=== PATIENT | male | born 1950 | race Caucasian/White ===

== ENCOUNTER 2018-02-17 14:27 | Emergency (ER) | payer OTHER ==
[2018-02-17 15:19] LABS: BASO % 0.3 % (0.0-1.0); EOS # 0.4 10^3/uL (0.0-0.50); EOS % 4.5 % (0.0-3.0); HEMATOCRIT 46.5 % (42.0-52.0); HEMOGLOBIN 15.9 g/dl (13.5-17.5); IMMATURE GRANULOCYTE % 0.4 % (0-3.0); LYMPH # 1.8 10^3/uL (1.5-4.5); LYMPH % 18.9 % (24.0-44.0); MEAN CORPUSCULAR HEMOGLOBIN 32.3 pg (27.0-33.0); MEAN CORPUSCULAR HGB CONC 34.2 g/dl (32.0-36.5); MEAN CORPUSCULAR VOLUME 94.5 fl (80.0-96.0); MONO # 0.9 10^3/uL (0.0-0.8); MONO % 8.9 % (0.0-5.0); NEUTROPHILS # 6.4 10^3/uL (1.8-7.7); PLATELET COUNT, AUTOMATED 243 10^3/uL (150-450); RED BLOOD COUNT 4.92 10^6/uL (4.30-6.10); RED CELL DISTRIBUTION WIDTH 16.7 % (11.5-14.5); WHITE BLOOD COUNT 9.6 10^3/uL (4.0-10.0)
[2018-02-17] MEDS: ONDANSETRON 4MG/2ML VIAL (J2405) IV (16:01)
[2018-02-17] MEDS: NS 1,000 ML IV (16:02)
[2018-02-17] MEDS: MORPHINE 4 MG/ML 1ML VIAL/SYRINGE (J2270) IV ×2 (16:05→18:21)
[2018-02-17 16:46] LABS: ALBUMIN 3.6 GM/DL (3.2-5.2); ALBUMIN/GLOBULIN RATIO 1.44 (1.00-1.93); ALKALINE PHOSPHATASE 71 U/L (45-117); ALT/SGPT 28 U/L (12-78); ANION GAP 5 MEQ/L (8-16); AST/SGOT 13 U/L (7-37); BILIRUBIN,DIRECT 0.2 MG/DL (0.0-0.2); BILIRUBIN,TOTAL 0.5 MG/DL (0.2-1.0); BLOOD UREA NITROGEN 19 MG/DL (7-18); CALCIUM LEVEL 8.8 MG/DL (8.8-10.2); CARBON DIOXIDE LEVEL 29 MEQ/L (21-32); CHLORIDE LEVEL 111 MEQ/L (98-107); CREATININE FOR GFR 0.64 MG/DL (0.70-1.30); GLOMERULAR FILTRATION RATE > 60.0 (>49); GLUCOSE, FASTING 109 MG/DL (70-100); LIPASE 114 U/L (73-393); POTASSIUM SERUM 3.9 MEQ/L (3.5-5.1); SODIUM LEVEL 145 MEQ/L (136-145); TOTAL PROTEIN 6.1 GM/DL (6.4-8.2)
[2018-02-17] MEDS ORDERED: ISOVUE-370 76% 100ML VIAL (Q9967) As Ordered (17:05)
[2018-02-17 17:32] LABS: APPEARANCE, URINE HAZY (CLEAR); BACTERIA, URINE AUTO NEGATIVE (NEGATIVE); BILIRUBIN, URINE AUTO NEGATIVE (NEGATIVE); BLOOD, URINE BLOOD 1+ (NEGATIVE); CALCIUM OXALATE CRYSTALS SMALL; COLOR, URINE YELLOW (YELLOW); GLUCOSE, URINE (UA) AUTO NEGATIVE (NEGATIVE); KETONE, URINE AUTO TRACE mg/dL (NEGATIVE); LEUKOCYTE ESTERASE, URINE AUTO TRACE (NEGATIVE); MUCUS, URINE SMALL (NEGATIVE); NITRITE, URINE AUTO NEGATIVE (NEGATIVE); PROTEIN, URINE AUTO 1+ mg/dL (NEGATIVE); RBC, URINE AUTO 8 /HPF (0-3); SPECIFIC GRAVITY URINE AUTO 1.026 (1.002-1.035); SQUAMOUS EPITHELIAL CELL UR AU 0 /HPF (0-6); WBC, URINE AUTO 3 /HPF (0-3)
[2018-02-17 18:43] LABS: C REACTIVE PROTEIN QUANTITATIV 3.34 MG/DL (0.00-0.30)
[2018-02-17 18:47] LABS: LACTIC ACID SEPSIS PROTOCOL 1.1 MMOL/L (0.4-2.0)
== END 2018-02-17 19:28 | disposition home or self-care (01) ==
LOC: M ED 14:27
DX: I71.4 Abdominal aortic aneurysm, without rupture (principal); K42.0 Umbilical hernia with obstruction, without gangrene; K57.30 Diverticulosis of large intestine without perforation or abscess without bleeding; E27.9 Disorder of adrenal gland, unspecified; J98.11 Atelectasis; I10 Essential (primary) hypertension; M54.9 Dorsalgia, unspecified; Z72.0 Tobacco use; Z79.82 Long term (current) use of aspirin; Z79.899 Other long term (current) drug therapy
CPT/HCPCS: J2270

== ENCOUNTER 2018-03-02 01:03 | Emergency (ER) | payer OTHER ==
[2018-03-02 03:30] LABS: BASO % 0.3 % (0.0-1.0); EOS # 0.5 10^3/uL (0.0-0.50); HEMATOCRIT 43.5 % (42.0-52.0); HEMOGLOBIN 14.9 g/dl (13.5-17.5); IMMATURE GRANULOCYTE % 0.6 % (0-3.0); LYMPH % 15.8 % (24.0-44.0); MEAN CORPUSCULAR HEMOGLOBIN 31.8 pg (27.0-33.0); MEAN CORPUSCULAR HGB CONC 34.3 g/dl (32.0-36.5); MEAN CORPUSCULAR VOLUME 92.9 fl (80.0-96.0); MONO # 0.8 10^3/uL (0.0-0.8); MONO % 6.5 % (0.0-5.0); NEUTROPHILS # 9.3 10^3/uL (1.8-7.7); NEUTROPHILS % 72.8 % (36.0-66.0); PLATELET COUNT, AUTOMATED 260 10^3/uL (150-450); RED BLOOD COUNT 4.68 10^6/uL (4.30-6.10); RED CELL DISTRIBUTION WIDTH 15.5 % (11.5-14.5); WHITE BLOOD COUNT 12.7 10^3/uL (4.0-10.0)
[2018-03-02 03:57] LABS: LACTIC ACID SEPSIS PROTOCOL 1.5 MMOL/L (0.4-2.0)
[2018-03-02 03:59] LABS: ALBUMIN 3.7 GM/DL (3.2-5.2); ALBUMIN/GLOBULIN RATIO 1.32 (1.00-1.93); ALKALINE PHOSPHATASE 85 U/L (45-117); ALT/SGPT 33 U/L (12-78); ANION GAP 9 MEQ/L (8-16); AST/SGOT 13 U/L (7-37); BILIRUBIN,DIRECT < 0.1 MG/DL (0.0-0.2); BILIRUBIN,TOTAL 0.4 MG/DL (0.2-1.0); BLOOD UREA NITROGEN 28 MG/DL (7-18); CALCIUM LEVEL 8.5 MG/DL (8.8-10.2); CARBON DIOXIDE LEVEL 28 MEQ/L (21-32); CHLORIDE LEVEL 107 MEQ/L (98-107); CPK CREATINE PHOSPHOKINASE 79 U/L (39-308); GLOMERULAR FILTRATION RATE > 60.0 (>49); GLUCOSE, FASTING 126 MG/DL (70-100); LIPASE 142 U/L (73-393); MB/CK RELATIVE INDEX 2.28 (< OR =4); POTASSIUM SERUM 3.3 MEQ/L (3.5-5.1); SODIUM LEVEL 144 MEQ/L (136-145); TOTAL PROTEIN 6.5 GM/DL (6.4-8.2); TROPONIN I < 0.02 NG/ML (< 0.10)
[2018-03-02 05:12] LABS: KETONE, URINE AUTO RFX NEGATIVE (NEGATIVE); LEUKOCYTE ESTERASE UR AUTO RFX NEGATIVE (NEGATIVE); MUCUS, URINE RFX SMALL (NEGATIVE); NITRITE, URINE AUTO RFX NEGATIVE (NEGATIVE); RBC, URINE AUTO RFX 3 /HPF (0-3); SPECIFIC GRAVITY UR AUTO RFX 1.027 (1.002-1.035); SQUAM EPITHELIAL CELL UR AURFX 0 /HPF (0-6); WBC, URINE AUTO RFX 2 /HPF (0-3)
== END 2018-03-02 06:07 | disposition home or self-care (01) ==
LOC: M ED 01:03
DX: K42.9 Umbilical hernia without obstruction or gangrene (principal); I45.19 Other right bundle-branch block; I10 Essential (primary) hypertension; Z79.82 Long term (current) use of aspirin; Z79.899 Other long term (current) drug therapy
CPT/HCPCS: 74021

== ENCOUNTER 2018-08-03 14:23 | Emergency (ER) | payer OTHER ==
[~2018-08-03] VITALS: Ht 165.1 cm; Wt 86.2 kg
[2018-08-03 14:23] VITALS: BP 135/74
[~2018-08-03 14:23] MED LIST: ASPI1TAB PO; DULO30CA; HYDR12.55 PO; NAPR-832 PO; SILD50TA2
--- NOTE | 2018-08-03 17:05 | REP ---
Chest two views HISTORY: Cough Comparison: 10/15/2013 The lungs are clear. The cardiac silhouette is enlarged. The pulmonary vasculature is normal in appearance. The bony structure is intact. IMPRESSION: Cardiomegaly. Electronically Signed by Xiang Busch MD 08/03/2018 04:57 P
[2018-08-03 17:07] LABS: INFLUENZA A AMPLIFICATION POSITIVE (NEGATIVE); INFLUENZA B AMPLIFICATION NEGATIVE (NEGATIVE)
[2018-08-03] MEDS ORDERED: DAY1CAP PO (17:16)
== END 2018-08-03 17:25 | disposition home or self-care (01) ==
LOC: M ED 14:23
DX: J09.X2 Influenza due to identified novel influenza A virus with other respiratory manifestations (principal); I11.9 Hypertensive heart disease without heart failure; Z79.899 Other long term (current) drug therapy; Z79.82 Long term (current) use of aspirin; F17.210 Nicotine dependence, cigarettes, uncomplicated

== ENCOUNTER → 2019-02-19 | Outpatient (CLI) | payer OTHER ==
[~2019-02-19] MED LIST changes: -ASPI1TAB PO; +ASPI81TA26 PO; +DAY1CAP PO; -DULO30CA; +DULO30CA9; +PROHANCE 279.3MG/ML 15ML VIAL (A9576) As Ordered ONE
--- NOTE | 2019-02-19 11:19 | REP ---
MRI brain without and with IV gadolinium: History: Neck pain and tremors. No comparison brain imaging. Technique: Axial and sagittal imaging planes are utilized for T1 and T2-weighted scans. Sequences include spin-echo, fast spin echo, FLAIR, and diffusion weighted sequences. Gadolinium enhancement dose is 15.4 mL of intravenous ProHance. MRI findings: The bony calvarium is intact. Craniocervical junction and upper cervical cord are unremarkable. There is a mucous retention cyst in the right side of the sphenoid sinus. There is no MR evidence of other paranasal sinus disease. No intraorbital abnormality is seen. There is no evidence of intracranial hemorrhage. Diffusion weighted scans show no evidence to suggest acute ischemia. There are numerous foci of periventricular and subcortical white matter hyperintensity on T2-weighted and FLAIR images consistent with small vessel atherosclerotic changes. No intracranial mass lesion is seen. The distal internal carotid arteries are more tortuous than usual in the carotid siphon segment and cavernous sinus segment. I cannot exclude an ICA aneurysm on the right side, 9 mm in diameter. Suggest MR angiography of the brain. No other vascular abnormality is seen. Postcontrast images show no abnormal intracranial contrast enhancement. Impression: 1. Small vessel atherosclerotic changes. 2. Possible inman aneurysm right internal carotid artery. Consider MR angiography of the brain. 3. Otherwise no acute intracranial abnormality. Electronically Signed by Kana Moreland MD 02/19/2019 02:05 P
--- NOTE | 2019-02-19 12:53 | REP ---
MRI cervical spine without and with IV contrast: History: Tremors. Neck pain. No comparison cervical spine imaging. Technique: Sagittal and axial T1 and T2-weighted scans are acquired in the usual fashion with and without fat saturation. Sequences include spin echo, turbo spin-echo, and STIR imaging sequences. 15 mL of intravenous ProHance is administered. MRI findings: Cervical vertebral body heights are preserved. Alignment is normal. Cortical and medullary bone signal intensity is unremarkable. Cervical cord is normal in coarse, caliber and signal intensity on T1 and T2-weighted scans. There is an air-fluid level in the sphenoid sinus to the right of midline. Axial and sagittal images taken at C2-3 show no abnormality. At C3-C4, there is degenerative disc narrowing and diffuse disc bulging. There is uncovertebral spurring bilaterally producing minimal neural foraminal encroachment. No central canal stenosis is seen. No focal disc protrusion is seen. At C4-C5, there is diffuse disc bulging and osteophytic ridging indenting the ventral margin of the thecal sac but not contacting the cord. Bilateral mild uncovertebral spurring is present. At C5-C6, there is posterior osteophytic ridging associated with diffuse disc bulging indenting the ventral margin of the thecal sac. This appears to contact the ventral margin of the cord. No cord displacement or compression. There is bilateral uncovertebral spurring mild in degree. At C6-C7, there is a tiny left central focal disc protrusion extending caudally. This indents the ventral margin of the sac. At C7-T1, there is minimal right-sided uncovertebral spurring. Impression: Degenerative spondylosis changes. No cord compression. Diffuse disc bulging and osteophytic ridging at each level from C3-4 through C5-6. Multilevel uncovertebral spurring. Electronically Signed by Kana Moreland MD 02/19/2019 02:05 P
== END ==
LOC: M RAD 06:49
PROVIDERS: ATTEND Family Medicine
DX: R25.1 Tremor, unspecified (principal); M50.21 Other cervical disc displacement, high cervical region; M50.221 Other cervical disc displacement at C4-C5 level; M50.222 Other cervical disc displacement at C5-C6 level; M50.223 Other cervical disc displacement at C6-C7 level; M47.812 Spondylosis without myelopathy or radiculopathy, cervical region; I67.2 Cerebral atherosclerosis
CPT/HCPCS: 70553; 72141; A9576

== ENCOUNTER → 2019-04-23 | Outpatient (CLI) | payer OTHER ==
[~2019-04-23] MED LIST changes: -PROHANCE 279.3MG/ML 15ML VIAL (A9576) As Ordered ONE
--- NOTE | 2019-04-23 11:11 | REP ---
Clinical: Abdominal aortic aneurysm. Technique: Axial noncontrast images from the lung bases to the pubic symphysis with coronal and sagittal re-formations. Comparison: 02/17/2018. Findings: The abdominal aorta at the level of the renal arteries measures 2.5 cm diameter and gradually dilates to 5.6 cm maximal diameter tapering to 3.4 cm maximal diameter at the level of the bifurcation where the left iliac artery measures 2 cm maximal diameter and the mid right common iliac artery measures 1.6 cm diameter. Liver, spleen, pancreas, gallbladder, bilateral adrenal glands and left kidney are relatively normal / stable. Right kidney demonstrates 2.8 cm and 1.8 cm cysts similar to prior examination. The enteric system is without obstruction or acute inflammatory process. Normal terminal ileum and appendix identified in the right lower quadrant. Colonic diverticulosis noted without acute diverticulitis. Pelvis demonstrates collapsed normal bladder and enlarged prostate gland measuring approximately 5.3 x 4.0 x 3.8 cm. No ascites. No free air. No significant adenopathy. Osseous structures are intact. Impression: 1. Infrarenal abdominal aortic aneurysm as described above measuring approximately 5.6 cm maximal diameter. Ectatic bilateral common iliac arteries (left greater than right). Findings have increased since prior examination. 2. Right renal hypodensities similar to prior examination likely representing cysts. 3. Diverticulosis without acute diverticulitis. 4. Prostatomegaly Electronically Signed by Bryant Ge MD 04/23/2019 11:02 A
== END ==
LOC: M RAD 10:06
PROVIDERS: ATTEND Surgery Vascular Surgery
DX: I71.4 Abdominal aortic aneurysm, without rupture (principal)

== ENCOUNTER → 2019-06-30 | Outpatient (CLI) | payer OTHER ==
--- NOTE | 2019-06-30 10:57 | REPVR ---
PROCEDURE INFORMATION: Exam: MR Angiogram Head Without Contrast, Arteries Exam date and time: 06/30/2019 9:46 AM Age: 69 years old Clinical indication: Abnormal findings; Abnormal mri of head; Patient HX: Question inman aneurysm from mri of brain; Additional info: [id number]. Aneurysm of carotid artery TECHNIQUE: Imaging protocol: MR angiogram head without contrast. Exam focused on the arteries. COMPARISON: MRI-Brain W/O FOLL BY WITH 02/19/2019 7:31 AM FINDINGS: Right internal carotid artery: The intracranial right ICA is elongated and tortuous. A posteriorly and inferiorly directed outpouching from the supraclinoid right ICA, the neck measures approximately 4 mm, the dome height is approximately 7 mm, the dome measures approximately 7 x 4 mm. This is measured around image 105 of series 201, image 6 series 207. Just superior to this dominant aneurysm, an additional smaller broad-based posteriorly directed aneurysm with neck measuring approximately 5 mm, dome height of approximately 4 mm, dome dimensions approximately 4 x 2 mm. Right anterior cerebral artery: Unremarkable. No occlusion or significant stenosis. No aneurysm. Right middle cerebral artery: Unremarkable. No occlusion or significant stenosis. No aneurysm. Right posterior cerebral artery: Unremarkable. No occlusion or significant stenosis. No aneurysm. Right vertebral artery: Unremarkable. No occlusion or significant stenosis. No aneurysm. Left internal carotid artery: The intracranial left ICA is elongated and tortuous. There is a posterolaterally directed outpouching from the supraclinoid left ICA consistent with aneurysm, the dome width is approximately 2.5 mm, the dome height is approximately 4 mm, the dome width is approximately 2-3 mm. Left anterior cerebral artery: Unremarkable. No occlusion or significant stenosis. No aneurysm. Left middle cerebral artery: Unremarkable. No occlusion or significant stenosis. No aneurysm. Left posterior cerebral artery: Unremarkable. No occlusion or significant stenosis. No aneurysm. Left vertebral artery: Unremarkable. No occlusion or significant stenosis. No aneurysm. Basilar artery: Unremarkable. No occlusion or significant stenosis. No aneurysm. IMPRESSION: 1. 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 Neurosurgical consultation is recommended. 2. Smaller supraclinoid left ICA aneurysm. Electronically signed by: Grecia Villeda On 06/30/2019 10:57:33 AM
[2019-06-30 11:58] LABS: BLOOD UREA NITROGEN 19 MG/DL (7-18); GLOMERULAR FILTRATION RATE > 60.0 (>49)
== END ==
LOC: M RAD 09:36
PROVIDERS: ATTEND Family Medicine
DX: I72.0 Aneurysm of carotid artery (principal)